=== PATIENT | female | born 1965 | race Caucasian/White ===

== ENCOUNTER 2021-08-06 12:51 | Outpatient (REF) | payer OTHER, SELFPAY | END 2021-08-06 12:52 | disposition home or self-care (01) | LOC: HO.BBR 12:51 | PROVIDERS: Visit Provider Internal Medicine Hematology & Oncology | DX: D75.1 Secondary polycythemia (principal) | CPT/HCPCS: 85014; 85018; 99195 ==

== ENCOUNTER 2021-08-13 12:48 | Outpatient (REF) | payer OTHER, SELFPAY | END 2021-08-13 12:49 | disposition home or self-care (01) | LOC: HO.BBR 12:48 | PROVIDERS: Visit Provider Internal Medicine Hematology & Oncology | DX: D75.1 Secondary polycythemia (principal) | CPT/HCPCS: 85014; 85018; 99195 ==

== ENCOUNTER 2021-08-20 11:56 | Outpatient (REF) | payer OTHER, SELFPAY | END 2021-08-20 11:57 | disposition home or self-care (01) | LOC: HO.BBR 11:56 | PROVIDERS: Visit Provider Internal Medicine Hematology & Oncology | DX: D75.1 Secondary polycythemia (principal) | CPT/HCPCS: 85014; 85018; 99195 ==

== ENCOUNTER 2024-06-09 11:06 | Outpatient (REF) | payer OTHER, SELFPAY | END 2024-06-09 11:07 | disposition home or self-care (01) | LOC: HO.BBR 11:06 | PROVIDERS: PCP Internal Medicine; Visit Provider Internal Medicine | DX: D45 Polycythemia vera (principal) | CPT/HCPCS: 85018; 99195 ==